=== PATIENT | male | born 1970 | race Caucasian/White ===

== ENCOUNTER → 2020-11-12 | Day surgery (SDC) | payer OTHER ==
[~2020-11-12] MED LIST: ALLOPURINOL 30300 MG PO; ASPIRIN EC81 MG PO; BACLOFEN 10MG T10 MG PO; BACLOFEN10 MG PO; CARBIDOPA-LEVO1 EAC6 PO; CHLORTHALIDONE25 MG PO; GABAPENTIN600 MG PO; INSULIN NOVALOG SC; K-DUR20 MEQ PO; LEVEMIR VI100 UNITS/ SC; LIPITOR20 MG PO; METFORMIN HCL500 MG PO; METOPROLOL SUC100 MG PO; NIZORAL CREAM 330 GM TOP; PAXIL40 MG PO; PERCOCET 5-3251 EACH PO; PHENERGAN25 M1 PO; PROTONIX 40MG T40 MG PO; TRULICITY1.5 MG/0.5 SC
[2020-11-12 07:59] LABS: BUN/CREAT RATIO (CALC) 22.2 RATIO; CREATININE 1.08 mg/dL (0.67-1.17); POTASSIUM 3.6 mmol/L (3.5-5.1)
== END | disposition home or self-care (01) ==
LOC: FAS 06:11
PROVIDERS: Anesthesiology
DX: M16.0 Bilateral primary osteoarthritis of hip (principal); M25.812 Other specified joint disorders, left shoulder; M06.9 Rheumatoid arthritis, unspecified; I10 Essential (primary) hypertension; G47.30 Sleep apnea, unspecified; E78.00 Pure hypercholesterolemia, unspecified; E11.9 Type 2 diabetes mellitus without complications; K21.9 Gastro-esophageal reflux disease without esophagitis; F41.9 Anxiety disorder, unspecified; Z86.16 Personal history of COVID-19; Z88.6 Allergy status to analgesic agent; Z88.0 Allergy status to penicillin; Z91.09 Other allergy status, other than to drugs and biological substances; Z79.4 Long term (current) use of insulin; Z79.899 Other long term (current) drug therapy
CPT/HCPCS: 36415; 76000; 80048; J1040; J2001; J2250; Q9967

== ENCOUNTER → 2020-12-16 | Day surgery (SDC) | payer OTHER ==
[2020-12-16 14:34] LABS: BUN/CREAT RATIO (CALC) 27.3 RATIO; CREATININE 0.99 mg/dL (0.67-1.17); POTASSIUM 3.3 mmol/L (3.5-5.1)
== END | disposition home or self-care (01) ==
LOC: FAS 12:28
PROVIDERS: Anesthesiology
DX: G56.02 Carpal tunnel syndrome, left upper limb (principal); M65.312 Trigger thumb, left thumb; M75.42 Impingement syndrome of left shoulder; Z20.822 Contact with and (suspected) exposure to COVID-19; Z88.6 Allergy status to analgesic agent; Z88.0 Allergy status to penicillin; Z88.8 Allergy status to other drugs, medicaments and biological substances; I10 Essential (primary) hypertension; E78.00 Pure hypercholesterolemia, unspecified; K21.9 Gastro-esophageal reflux disease without esophagitis; E11.9 Type 2 diabetes mellitus without complications; M19.90 Unspecified osteoarthritis, unspecified site; G47.30 Sleep apnea, unspecified; Z99.81 Dependence on supplemental oxygen; Z79.899 Other long term (current) drug therapy; Z87.891 Personal history of nicotine dependence
CPT/HCPCS: 36415; 80048; 93005; J1885; J2250; J2405; J2704; J3010; J7120

== ENCOUNTER → 2021-04-21 | Day surgery (SDC) | payer OTHER ==
[~2021-04-21] VITALS: Ht 175.3 cm; Wt 117.9 kg
[~2021-04-21] MED LIST changes: +HYDROCODON-ACE1 EAC2 PO
== END | disposition home or self-care (01) ==
LOC: FAS 06:11
DX: M16.0 Bilateral primary osteoarthritis of hip (principal); I10 Essential (primary) hypertension; E78.5 Hyperlipidemia, unspecified; G47.30 Sleep apnea, unspecified; Z88.0 Allergy status to penicillin; Z88.5 Allergy status to narcotic agent; Z88.8 Allergy status to other drugs, medicaments and biological substances; Z79.82 Long term (current) use of aspirin; Z79.4 Long term (current) use of insulin; Z79.899 Other long term (current) drug therapy
CPT/HCPCS: 76000; 82962; J1040; J2001; J2250; J2704; J7120; Q9967

== ENCOUNTER → 2021-07-21 | Day surgery (SDC) | payer OTHER ==
[~2021-07-21] VITALS: Ht 175.3 cm; Wt 117.9 kg
== END | disposition home or self-care (01) ==
LOC: FAS 06:02
DX: M16.12 Unilateral primary osteoarthritis, left hip (principal); I12.9 Hypertensive chronic kidney disease with stage 1 through stage 4 chronic kidney disease, or unspecified chronic kidney disease; E11.22 Type 2 diabetes mellitus with diabetic chronic kidney disease; N18.30 Chronic kidney disease, stage 3 unspecified; E78.00 Pure hypercholesterolemia, unspecified; G47.30 Sleep apnea, unspecified; K21.9 Gastro-esophageal reflux disease without esophagitis; Z99.89 Dependence on other enabling machines and devices; Z79.4 Long term (current) use of insulin; Z79.82 Long term (current) use of aspirin; Z79.899 Other long term (current) drug therapy; Z88.0 Allergy status to penicillin; Z88.5 Allergy status to narcotic agent; Z88.8 Allergy status to other drugs, medicaments and biological substances
CPT/HCPCS: 76000; J1040; J1885; J2001; J2250; J2704; J3010; J7120; Q9967

== ENCOUNTER → 2021-11-17 | Day surgery (SDC) | payer OTHER ==
[~2021-11-17] VITALS: Ht 175.3 cm; Wt 117.9 kg
[~2021-11-17] MED LIST changes: +BRIN10TA PO
[2021-11-17 08:57] LABS: HCT 44.7 % (42.0-52.0); HGB 15.2 g/dl (13.2-18.0); MCH 28.3 pg (25.0-31.0); MCV 83.2 fL (78.0-100.0); MPV 8.8 fL (6.0-9.5); RBC 5.37 M/uL (4.70-6.00); RDW 13.4 % (11.5-14.0); WBC 7.8 K/uL (4.0-10.5)
[2021-11-17 09:18] LABS: ALBUMIN 3.8 g/dL (3.4-5.0); BILIRUBIN - TOTAL 0.5 mg/dL (0.2-1.0); BUN/CREAT RATIO (CALC) 15.8 RATIO; CREATININE 0.95 mg/dL (0.67-1.17); GLOBULIN (CALCULATION) 3.4 g/dL; POTASSIUM 3.6 mmol/L (3.5-5.1); TOTAL PROTEIN 7.2 g/dL (6.4-8.2)
== END | disposition home or self-care (01) ==
LOC: FAS 07:45
PROVIDERS: Orthopaedic Surgery
DX: M16.0 Bilateral primary osteoarthritis of hip (principal); M17.11 Unilateral primary osteoarthritis, right knee; I10 Essential (primary) hypertension; K21.9 Gastro-esophageal reflux disease without esophagitis; E11.9 Type 2 diabetes mellitus without complications; E78.5 Hyperlipidemia, unspecified; G47.30 Sleep apnea, unspecified; F41.9 Anxiety disorder, unspecified; Z99.89 Dependence on other enabling machines and devices; Z88.0 Allergy status to penicillin; Z88.5 Allergy status to narcotic agent; Z88.8 Allergy status to other drugs, medicaments and biological substances; Z79.82 Long term (current) use of aspirin; Z79.4 Long term (current) use of insulin; Z79.899 Other long term (current) drug therapy
CPT/HCPCS: 36415; 76000; 80053; J1040; J2001; J2250; J7120; Q9967

== ENCOUNTER 2022-01-26 05:35 | Day surgery (SDC) | payer OTHER ==
[~2022-01-26] VITALS: Ht 175 cm; Wt 113.0 kg
--- NOTE | 2022-01-26 14:01 | NUR ---
NOTIFIED OF 1ST APPOINTMENT 01/28/22 ANNA AT 0800
[2022-01-27 07:40] LABS: BASOPHIL 0.3 % (0-2); EOSINOPHIL 0.1 % (0-5); HCT 41.9 % (42.0-52.0); HGB 13.3 g/dl (13.2-18.0); LYMPHOCYTE 15.1 % (15-48); MCH 27.5 pg (25.0-31.0); MCHC 31.7 g/dL (32.0-36.0); MCV 86.6 fL (78.0-100.0); MONOCYTE 7.8 % (0-12); MPV 9.1 fL (6.0-9.5); NEUTROPHIL 76.1 % (41-80); NRBC 0; PLT 224 K/uL (150-400); RBC 4.84 M/uL (4.70-6.00); RDW 14.4 % (11.5-14.0); WBC 12.1 K/uL (4.0-10.5)
[2022-01-27 08:13] LABS: CREATININE 0.94 mg/dL (0.67-1.17); POTASSIUM 3.6 mmol/L (3.5-5.1)
[2022-01-27] MEDS ORDERED: FEOSOL325 MG PO (08:49)
== END 2022-01-27 09:45 | disposition home or self-care (01) ==
LOC: FMS 05:35 → FAS 05:35 → FMS 07:37 → FAS 09:00
PROVIDERS: Orthopaedic Surgery
DX: M17.11 Unilateral primary osteoarthritis, right knee (principal); I12.9 Hypertensive chronic kidney disease with stage 1 through stage 4 chronic kidney disease, or unspecified chronic kidney disease; E11.22 Type 2 diabetes mellitus with diabetic chronic kidney disease; N18.30 Chronic kidney disease, stage 3 unspecified; E78.5 Hyperlipidemia, unspecified; K21.9 Gastro-esophageal reflux disease without esophagitis; Z88.0 Allergy status to penicillin; Z88.5 Allergy status to narcotic agent; Z88.8 Allergy status to other drugs, medicaments and biological substances; Z79.82 Long term (current) use of aspirin; Z79.4 Long term (current) use of insulin; Z79.899 Other long term (current) drug therapy
CPT/HCPCS: 36415; 73560; 80048; 85025; 86850; 86900; 86901; 94010; 94760; 94762; 97110; 97162; 97165; 97530-GP; 97535; C1713; C1776; J0171; J1100; J1170; J1885; J2250; J2704; J2795; J3010; J3370; J7040; J7050; J7120